=== PATIENT | female | born 1940 | race African-American/Black ===

== ENCOUNTER 2017-04-14 18:43 | Emergency (ER) | payer MEDICARE ==
[~2017-04-14] VITALS: Ht 170.2 cm; Wt 122.5 kg
[2017-04-14 19:00] VITALS: BP_SYST 139
[2017-04-14 23:00] VITALS: BP_SYST 141
[2017-04-14] MEDS ORDERED: KETOROLAC TROMETHAMINE 30 MG VIAL IM ONE (23:00)
== END 2017-04-14 23:00 | disposition home or self-care (01) ==
LOC: SED 18:43
DX: S80.01XA Contusion of right knee, initial encounter (principal); S60.222A Contusion of left hand, initial encounter; M54.2 Cervicalgia; R07.89 Other chest pain; I10 Essential (primary) hypertension; V89.2XXA Person injured in unspecified motor-vehicle accident, traffic, initial encounter; Z88.8 Allergy status to other drugs, medicaments and biological substances; Y93.89 Activity, other specified; Y92.411 Interstate highway as the place of occurrence of the external cause; Y99.8 Other external cause status
CPT/HCPCS: 71010; 73110; 73130; 73564; 96372; 99284; J1885

== ENCOUNTER 2017-12-26 11:57 | Emergency (ER) | payer MEDICARE ==
[~2017-12-26] VITALS: Ht 170.2 cm; Wt 81.6 kg
[2017-12-26 11:57] VITALS: BP_SYST 163
[2017-12-26] MEDS ORDERED: MORPHINE 2 MG/ML INJ. SYRINGE IVP ONE (13:45)
[2017-12-26] MEDS ORDERED: HYDROmorphone 1 MG INJ. 1 MG/ML AMPUL IVP ONE (13:45)
[2017-12-26 14:49] VITALS: BP_SYST 158
== END 2017-12-26 14:49 | disposition home or self-care (01) ==
LOC: SED 11:57
DX: S82.001A Unspecified fracture of right patella, initial encounter for closed fracture (principal); E11.9 Type 2 diabetes mellitus without complications; I10 Essential (primary) hypertension; Z88.8 Allergy status to other drugs, medicaments and biological substances; W19.XXXA Unspecified fall, initial encounter; Y93.89 Activity, other specified; Y92.099 Unspecified place in other non-institutional residence as the place of occurrence of the external cause; Y99.8 Other external cause status
CPT/HCPCS: 29505; 73564; 96372; 99284; J2270